=== PATIENT | female | born 1955 | race Caucasian/White ===

== ENCOUNTER 2022-06-28 13:16 | Emergency (ER) | payer OTHER, MEDICARE ==
[2022-06-28 13:57] VITALS: BP 156/79; PULSE 76; RESP 20; TEMP 98.8; BMI 24.7
[2022-06-28 15:38] LABS: BASO % 0.6 % (0-2.0); EOS % 1.4 % (0-4.5); HEMATOCRIT 35.8 % (32.4-45.2); HEMOGLOBIN 12.2 GM/dL (10.7-15.3); LYMPH % 38.5 % (8-40); MCH 31.5 pg (25.7-33.7); MEAN CELL VOLUME 92.5 fl (80-96); MONO % 7.8 % (3.8-10.2); NEUT % 51.7 % (42.8-82.8); PLATELET COUNT 152 10^3/uL (134-434); RBC 3.87 M/mm3 (3.60-5.2); RDW 13.5 % (11.6-15.6); WHITE BLOOD COUNT 7.6 K/mm3 (4.0-10.0)
[2022-06-28 15:45] LABS: INR 0.98 (0.83-1.09); PROTHROMBIN TIME (PATIENT) 11.3 SEC (9.7-13.0)
[2022-06-28 15:48] LABS: ACTIVATED PTT 29.3 SECONDS (25.2-36.5)
[2022-06-28 16:06] LABS: ALBUMIN 3.1 g/dl (3.4-5.0); CALCIUM 8.8 mg/dL (8.5-10.1)
[2022-06-28 16:10] LABS: CREATININE 0.8 mg/dL (0.55-1.3)
[2022-06-28 16:11] LABS: BILIRUBIN,TOTAL 0.3 mg/dL (0.2-1); TOT PROT 6.4 g/dl (6.4-8.2)
== END 2022-06-28 17:09 | disposition left against medical advice (07) ==
LOC: JER 13:16
DX: R07.89 Other chest pain (principal)
CPT/HCPCS: 36415; 71045-TC-FY; 80053; 84484; 85025; 85610; 85730; 93005; 93010; 99285-25; C9803-CS; U0003; U0005